=== PATIENT | male | born 1990 | race Caucasian/White ===

== ENCOUNTER 2020-08-09 18:34 | Observation (INO) | payer SELFPAY ==
--- NOTE | 2020-08-09 18:34 | HP ---
COLLABORATING PHYSICIAN: Reyes Quintero M.D. CHIEF COMPLAINT: Abdominal pain. HISTORY OF PRESENT ILLNESS: This is a 29 year-old male patient who presented to his primary care physician's office with abdominal pain. The abdominal pain was lower abdominal mainly to the right lower quadrant. He especially had nausea. No significant vomiting. The patient also drinks alcohol on a regular basis, 6 to 12 beers per day, he says. Anyhow, when he was evaluated by his primary care physician, she did some labs as well as a CT scan of the abdomen and pelvis which showed acute appendicitis. Lab showed no elevation of white count, however there was a left shift with 95.9% neutrophils. Chemistry was for the most part unremarkable except for an elevated bilirubin of 1.7. Once the CT scan results were reported to the patient's primary care physician, she contacted Dr. Rush for consultation and for plan for surgical intervention. I was then contacted for direct admission. At time of examination, the patient is alert and oriented in no significant distress, however he does complain of some discomfort to the right lower quadrant. Additionally he states that he is hungry and has not eaten all day. PAST MEDICAL HISTORY: No significant past medical history. PAST SURGICAL HISTORY: No surgical history. CURRENT MEDICATIONS: He is not on any medications. ALLERGIES: NO KNOWN DRUG ALLERGIES. FAMILY HISTORY: Reviewed and noncontributory. SOCIAL HISTORY: The patient does not smoke but he does drink 6 to 12 beers per day. No illegal drugs. REVIEW OF SYSTEMS: CONSTITUTIONAL: No fever, no chills. No recent weight loss or weight gain. HEENT: No headaches, vision changes, ear pain, nasal congestion or throat pain. RESPIRATORY: No cough, hemoptysis or pleuritic chest pain. CARDIOVASCULAR: No chest pain, palpitations or peripheral edema. GASTROINTESTINAL: Positive for some nausea. No vomiting, diarrhea or constipation. Positive for right lower quadrant abdominal pain. GENITOURINARY: No dysuria, frequency or flank pain. ENDOCRINE: No polydipsia, polyuria or polyphagia. No heat or cold intolerance. MUSCULOSKELETAL: No joint pain, joint swelling or muscle cramps. NEUROLOGIC: No syncope, paresthesias or seizures. PHYSICAL EXAMINATION: VITAL SIGNS: Blood pressure 138/94, heart rate 106, respiratory rate 16, temperature 98.3, oxygen saturation 95%. GENERAL: Mr. Gillis is a 29 year-old male patient in no active distress currently. NEUROLOGIC: The patient is alert and oriented. LUNGS: Clear to auscultation bilaterally. CARDIOVASCULAR: Regular rate and rhythm. Normal S1, S2. ABDOMEN: Soft. Positive bowel sounds. Does have rebound tenderness to the right lower quadrant. EXTREMITIES: Lower extremities with no edema, 2+ pulses. Capillary refill less than 2 seconds. LABORATORY: Labs and films as discussed in history of present illness. ASSESSMENT: 1. Acute appendicitis. 2. ETOH abuse. PLAN: The patient will be admitted and placed on empiric antibiotics of Zosyn. I have also ordered some pain medicines with Fentanyl p.r.n. as well as some nausea medications with Zofran p.r.n. I will recheck his labs in the morning to ensure there is no worsening. I have placed him on Zosyn every 8 hours, clear liquid diet but NPO at midnight. I am also doing COVID testing due to impending surgical intervention. I put him on IV fluids with MVI, thiamine, and then giving him a dose of folic acid as well. He is not showing any signs of DTs, although his last drink was on Saturday. Will monitor for any complications related to this. #[id number] [facility]
[2020-08-09] MEDS ORDERED: SODIUM CHLORIDE 0.9% (FLUSH) 10 ML SYG IV PRN (18:57)
[2020-08-09] MEDS ORDERED: ONDANSETRON INJ 4 MG/2 ML VIAL IV PRN (19:00)
[2020-08-09] MEDS ORDERED: IV SET AND CAP CHANGE INJ INJ SCH (19:00)
[2020-08-09] MEDS ORDERED: SODIUM CHLORIDE 0.9% IVPB ONE (19:02)
[2020-08-09] MEDS ORDERED: FOLIC ACID IVPB ONE (19:02)
[2020-08-09] MEDS ORDERED: MULTIPLE VITAMIN INJ 10 ML, THIAMINE HCL INJ 100 MG in SODIUM CHLORIDE 0.9% 1000ML 1,00... IVS SCH (19:30)
[2020-08-09] MEDS ORDERED: SODIUM CHL 0.9% 100ML MINI-BAG 100 ML IVPB ONE (19:37)
[2020-08-09] MEDS ORDERED: PIPERACILLIN/TAZOBACTAM 3.375 GM VIAL IVPB ONE (19:37)
[2020-08-09] MEDS: fentaNYL CITRATE INJ 50 MCG/ML 2 ML AMP IV PRN ×2 (19:46→22:15)
[2020-08-09] MEDS: PIPERACILLIN/TAZOBACTAM 3.375 GM in SODIUM CHLORIDE 0.9% 100ML 100 ML IVPB SCH (19:47)
[2020-08-09] MEDS ORDERED: SODIUM CHLORIDE 0.9% 1000ML 1,000 ML ONE (20:47)
[2020-08-09] MEDS ORDERED: THIAMINE HCL INJ 100 MG/ML VIAL ONE (20:47)
[2020-08-09] MEDS ORDERED: MULTIPLE VITAMIN 10 ML VIAL ONE (20:48)
[2020-08-10] MEDS: fentaNYL CITRATE INJ 50 MCG/ML 2 ML AMP IV PRN ×3 (00:51→07:30)
[2020-08-10] MEDS: PIPERACILLIN/TAZOBACTAM 3.375 GM in SODIUM CHLORIDE 0.9% 100ML 100 ML IVPB SCH ×2 (04:00→12:43)
[2020-08-10] MEDS ORDERED: PIPERACILLIN/TAZOBACTAM 3.375 GM VIAL IVPB ONE ×2 (04:09→12:40)
[2020-08-10] MEDS ORDERED: SODIUM CHL 0.9% 100ML MINI-BAG 100 ML IVPB ONE (04:10)
[2020-08-10] MEDS ORDERED: ACETAMINOPHEN 500 MG TAB PO ONE (07:26)
[2020-08-10] MEDS ORDERED: ROCURONIUM BROMIDE 10 MG/ML VIAL ONE (12:15)
[2020-08-10] MEDS ORDERED: SUGAMMADEX SODIUM 200 MG/2 ML VIAL IV ONE (12:15)
[2020-08-10] MEDS ORDERED: KETAMINE HCL 100 MG/ML VIAL ONE (12:15)
[2020-08-10] MEDS ORDERED: fentaNYL CITRATE INJ 50 MCG/ML 2 ML AMP ONE ×2 (12:15→14:08)
[2020-08-10] MEDS ORDERED: FAMOTIDINE INJ 10 MG/ML VIAL IV ONE (12:15)
[2020-08-10] MEDS ORDERED: MIDAZOLAM INJ 2 MG/2 ML VIAL ONE (12:15)
[2020-08-10] MEDS ORDERED: BUPIVACAINE 0.25% W/EPI 50 ML VIAL INJ ONE ×2 (12:28→13:26)
[2020-08-10] MEDS ORDERED: SODIUM CHLORIDE 0.9% 100ML 100 ML IVPB ONE (12:41)
[2020-08-10] MEDS ORDERED: ONDANSETRON INJ 4 MG/2 ML VIAL ONE (12:45)
[2020-08-10] MEDS ORDERED: DEXAMETHASONE INJ 10 MG/ML VIAL ONE (12:45)
[2020-08-10] MEDS ORDERED: LIDOCAINE 1% 10 ML VIAL INJ ONE (12:45)
[2020-08-10] MEDS ORDERED: PROPOFOL 200 MG/20 ML VIAL IV ONE (12:45)
[2020-08-10] MEDS ORDERED: MAGNESIUM SULFATE INJ 1 GM/2 ML VIAL ONE (12:45)
[2020-08-10] MEDS ORDERED: DEXMEDETOMIDINE HCL 200 MCG/2 ML INJ IV ONE (13:29)
[2020-08-10] MEDS ORDERED: LACTATED RINGERS 800 ML IVS ONE (13:55)
--- NOTE | 2020-08-10 14:26 | OP ---
DATE OF PROCEDURE: 08/10/20 PREOPERATIVE DIAGNOSIS: 1. Acute appendicitis. POSTOPERATIVE DIAGNOSIS: 1. Acute appendicitis. PROCEDURE: 1. Laparoscopic appendectomy. SURGEON: Reyes Rush MD ANESTHESIA: General and local. FINDINGS: Acute suppurative tip with no perforation. There was yellowish reactive fluid in the pelvis and the right side of the abdomen. COMPLICATIONS: None. ESTIMATED BLOOD LOSS: Minimal. SPECIMEN: Appendix. PLAN: Discharge. INDICATION: As stated. PROCEDURE: After complete informed consent, general anaesthesia was induced. The patient was prepped and draped in sterile fashion. 0.5% Marcaine with epinephrine was used at all incision sites. While maintaining upward traction, a faustino was made near the base of the umbilicus. A Veress needle was introduced. There was free flow of fluid into the peritoneal cavity which was insufflated to an appropriate level with CO2 gas. A 5 mm trocar was placed followed by the camera. There was no evidence of bleeding or bowel injury. The patient was positioned and the suprapubic and right lower quadrant ports were placed. There was a little bit of omentum adherent to the appendiceal tip, which was adherent to the abdominal wall. This was easily taken down. We elevated the appendix and the base of the appendix was completely healthy. The Endo stapler was used with a blue load across the mesoappendix to the base and then the new orange or bowel load across the base of the appendix. The appendix easily fit through the trocar and was removed without spillage. We then examined the stable line. It remained hemostatic. Clips were intact. There was no bleeding or leakage. We then irrigated the pelvis of its reactive fluid and above the liver. We examined the stomach briefly to make sure there was no evidence of stomach inflammation and there was not. We were certain this was appendicitis. The suprapubic fascia was then closed with #0 Vicryl using the suture passers. The area was airtight and non-bleeding. The remaining trocars were removed. The abdomen was desufflated. The wounds were closed with Monocryl and dressing applied. He was awakened and taken to Recovery to be discharged post recovery. #[id number] [facility]
[2020-08-10 15:16] VITALS: BP 111/70; TEMP 99.5; O2SAT 93
--- NOTE | 2020-08-24 11:40 | DS ---
SUPERVISING PHYSICIAN: Reyes Quintero MD ADMISSION DIAGNOSIS: 1. Acute appendicitis. 2. ETOH abuse. DISCHARGE DIAGNOSIS: 1. Acute appendicitis, status post laparoscopic appendectomy performed by Dr. Rush. 2. ETOH abuse. REASON FOR HOSPITALIZATION: This is a 29 year-old male patient who presented to his primary care physician's office with abdominal pain. The abdominal pain was lower abdominal mainly to the right lower quadrant. He especially had nausea. No significant vomiting. The patient also drinks alcohol on a regular basis, 6 to 12 beers per day, he says. Anyhow, when he was evaluated by his primary care physician, she did some labs as well as a CT scan of the abdomen and pelvis which showed acute appendicitis. Lab showed no elevation of white count, however there was a left shift with 95.9% neutrophils. Chemistry was for the most part unremarkable except for an elevated bilirubin of 1.7. Once the CT scan results were reported to the patient's primary care physician, she contacted Dr. Rush for consultation and for plan for surgical intervention. I was then contacted for direct admission. At time of examination, the patient is alert and oriented in no significant distress, however he does complain of some discomfort to the right lower quadrant. Additionally he states that he is hungry and has not eaten all day. LABORATORY: White count 7,000, platelet count 93,000. Differential did show a left shift. Chemistries show normal electrolytes. Creatinine 1.07, bilirubin slightly elevated at 1.3. Otherwise, liver enzymes were normal. MICROBIOLOGY: Respiratory panel was negative for COVID and all other bacterial and viral targets as tested including influenza. RADIOLOGY: No additional radiographic studies in the hospital. He had a CT prior to admission. CONSULTATION: Surgical consultation by Reyes Rush MD. PROCEDURES: Laparoscopic appendectomy. Please see Dr. Rush's surgical note for details. HOSPITAL COURSE: Mr. Gillis was admitted for surgical consultation for acute appendicitis by Dr. Rush. He did have a laparoscopic appendectomy performed by Dr. Rush on 08/09/20. There were no intraoperative complications. He was seen postoperatively and discharged the same day of his procedure. He was tolerating a diet. He was ambulating. He had no complications. On discharge, vital signs showed he was for evaluation at 99.5, pulse 83, blood pressure 111/70, saturation 93% on room air, respirations 18. It was felt he had stabilized well enough to continue with outpatient management and followup with Dr. Rush. PLAN: Mr. Gillis was discharged on 08/10/20. He was instructed to followup with Dr. Rush in 2 weeks. He was to resume activities as tolerated, but no lifting or pulling until cleared by Dr. Rush. No medications were prescribed on discharge. He was to resume his usual diet. He was given instructions to call Dr. Rush or return to the Emergency Room should he have any concerning symptoms. CONDITION ON DISCHARGE: Stable and improved. DISPOSITION: The patient was discharged home. #[id number] [facility]
== END 2020-08-10 15:45 | disposition home or self-care (01) ==
LOC: MS 18:34 → INTOOBSV 18:34
PROVIDERS: ADMIT Nurse Practitioner; ATTEND Nurse Practitioner Family
DX: K35.80 Unspecified acute appendicitis (principal); F10.10 Alcohol abuse, uncomplicated; Z20.822 Contact with and (suspected) exposure to COVID-19
CPT/HCPCS: 96366 ×2; 96365; 96375; 96376 ×2; J3010 ×7; J2405; J2543 ×3; J3490; J7030; J3411; J3475; J1100; A4216; J2250; J7050 ×3; J7120; 80053; 36415; 85025; G0378; 87581; 87486; 87633; 87635; 44970; 00840

== ENCOUNTER → 2020-08-09 | Outpatient (CLI) | payer SELFPAY ==
--- NOTE | 2020-08-09 17:34 | CT ---
EXAM: Abdomen/Pelvis w/Contrast CLINICAL INDICATION: Right lower quadrant pain, epigastric pain COMPARISON: There is no previous study for comparison. TECHNIQUE: The CT scan was done using contiguous axial 5 mm postcontrast sections through the abdomen and pelvis including IV contrast. This exam was performed according to our departmental dose-optimization program, which includes automated exposure control, adjustment of the mA and/or kV according to patient size and/or use of iterative reconstruction technique. FINDINGS: The visualized portions of the lung bases are clear. The liver, gallbladder, kidneys, adrenal glands, spleen, and pancreas have a normal CT appearance. The aorta is normal in caliber. The appendix is abnormal, dilated and inflamed consistent with acute appendicitis measuring up to 9.1 mm in diameter. There are no dilated loops of small bowel. There is no abscess or free air. IMPRESSION: Findings consistent with acute appendicitis. I telephoned these findings to Gabriela Man NP at 5:32 PM central time on 08/09/2020. Electronically signed by: Kashif Hicks MD 08/09/2020 5:32 PM [facility]
== END ==
LOC: YCFC.O 15:59
PROVIDERS: ATTEND Family Medicine
DX: K35.80 Unspecified acute appendicitis (principal)